=== PATIENT | female | born 1950 | race Caucasian/White ===

== ENCOUNTER 2017-11-27 19:14 | Inpatient (IN) | payer MEDICARE ==
[~2017-11-27] VITALS: Ht 149.9 cm; Wt 86.5 kg
[2017-11-27] MEDS ORDERED: IBUPROFEN 200 MG TABLET ONE (19:38)
[2017-11-27 19:57] LABS: RAPID INFLUENZA A POSITIVE (Negative); RAPID INFLUENZA B Negative (Negative)
[2017-11-27] MEDS ORDERED: IBUPROFEN 200 MG TABLET PO ONE (20:00)
[2017-11-27 20:11] LABS: BASOPHILS # (AUTO) 0.03 x10^3/uL (0-0.1); BASOPHILS % (AUTO) 0 % (0-1); EOSINOPHILS # (AUTO) 0.09 x10^3/uL (0-0.4); EOSINOPHILS % (AUTO) 1 % (1-7); LYMPHOCYTES # (AUTO) 0.96 x10^3/uL (1-3.4); LYMPHOCYTES % (AUTO) 10 % (22-44); MD NO; MEAN CORPUSCULAR HEMOGLOBIN 32.3 pg (27.0-34.8); MEAN CORPUSCULAR HGB CONC 34.4 g/dL (32.4-35.8); MEAN CORPUSCULAR VOLUME 93.9 fL (80-100); MEAN PLATELET VOLUME 8.4 fL (7.4-10.4); MONOCYTES # (AUTO) 1.06 x10^3/uL (0.2-0.8); MONOCYTES % (AUTO) 11 % (2-9); NEUTROPHILS # (AUTO) 7.73 x10^3/uL (1.8-6.8); NEUTROPHILS % (AUTO) 78 % (42-75); PLATELET COUNT 265 x10^3/uL (130-400); RED CELL DISTRIBUTION WIDTH 13.7 % (9.6-15.2)
[2017-11-27 20:22] LABS: ALBUMIN 3.4 g/dL (3.4-5.0); ANION GAP 8 mmol/L (5-15); CALCIUM 8.6 mg/dL (8.5-10.1); CHLORIDE 106 mmol/L (98-107); CREATININE 0.75 mg/dL (0.55-1.02)
[2017-11-27] MEDS ORDERED: CEFTRIAXONE PMX 1GM/50ML 50 ML ONE (20:30)
[2017-11-27] MEDS ORDERED: OSELTAMIVIR 75 MG CAPSULE PO ONE (20:30)
[2017-11-27] MEDS ORDERED: CEFTRIAXONE PMX 1GM/50ML 50 ML IVPB ONE (20:30)
[2017-11-27] MEDS ORDERED: AZITHROMYCIN 500 MG in SODIUM CHLORIDE 0.9% 250 ML IVPB ONE (20:30)
[2017-11-27] MEDS ORDERED: ALBUTEROL/IPRATROPIUM 2.5MG/0.5MG, 3 ML ONE (20:39)
[2017-11-27] MEDS ORDERED: BUPR150T73 PO (21:44)
[2017-11-27] MEDS ORDERED: SODIUM CHLORIDE FLUSH 10ML SYR IVF PRN (22:00)
[2017-11-27] MEDS ORDERED: ONDANSETRON 2MG/ML, 2ML IVPush PRN (22:30)
[2017-11-27] MEDS ORDERED: ALBUTEROL/IPRATROPIUM 2.5MG/0.5MG, 3 ML NPPB PRN (22:30)
[2017-11-27 23:45] VITALS: BP 129/57
[2017-11-28 01:19] VITALS: BP 141/64
[2017-11-28] MEDS: ACETAMINOPHEN 325 MG TABLET PO PRN ×4 (05:58→20:34)
[2017-11-28] MEDS: OSELTAMIVIR 75 MG CAPSULE PO SCH ×2 (09:45→20:34)
[2017-11-28] MEDS ORDERED: DIPHENHYDRAMINE 25 MG CAPSULE PO ONE (12:30)
[2017-11-28] MEDS: methylPREDNISolone SOD SUCC 40 MG/ML IV SCH ×2 (13:48→20:34)
[2017-11-28] MEDS: GUAIFENESIN/DM 200-20MG, 10ML UDC PO PRN ×2 (13:48→20:33)
[2017-11-28] MEDS: ZINC SULFATE 220 MG CAPSULE PO SCH (15:57)
[2017-11-28] MEDS: ASCORBIC ACID 500 MG TABLET PO SCH (15:57)
[2017-11-28 15:59] VITALS: BP 148/65
[2017-11-28] MEDS: BUDESONIDE 0.5 MG/2 ML INHA INH SCH (18:40)
[2017-11-28] MEDS ORDERED: CEFTRIAXONE PMX 2GM/50ML 50 ML IV SCH (20:30)
[2017-11-28] MEDS ORDERED: AZITHROMYCIN 500 MG in SODIUM CHLORIDE 0.9% 250 ML IV SCH (20:30)
[2017-11-28] MEDS ORDERED: MELATONIN 5 MG TABLET PO SCH (21:00)
[2017-11-28 22:09] VITALS: BP 133/49
[2017-11-29 01:54] VITALS: BP 127/69
[2017-11-29] MEDS: methylPREDNISolone SOD SUCC 40 MG/ML IV SCH (05:07)
[2017-11-29 09:00] VITALS: BP 158/68
[2017-11-29] MEDS: ZINC SULFATE 220 MG CAPSULE PO SCH (09:25)
[2017-11-29] MEDS: ASCORBIC ACID 500 MG TABLET PO SCH (09:25)
[2017-11-29] MEDS: GUAIFENESIN/DM 200-20MG, 10ML UDC PO PRN (09:25)
[2017-11-29] MEDS: OSELTAMIVIR 75 MG CAPSULE PO SCH (09:25)
[2017-11-29 09:37] VITALS: BP 149/68
[2017-11-29] MEDS ORDERED: DOXY100T PO (10:21)
[2017-11-29] MEDS ORDERED: PRED20TA PO (10:21)
[2017-11-29] MEDS ORDERED: ACET325T14 PO (10:21)
[2017-11-29] MEDS ORDERED: OSEL75CA PO (10:21)
[2017-11-29] MEDS ORDERED: CEFD300C37 PO (10:21)
[2017-11-29] MEDS ORDERED: GUAI5SYR PO (10:21)
[2017-11-29] MEDS ORDERED: ASCO500T6 PO (10:21)
[2017-11-29] MEDS ORDERED: ALBU8.5H8 INH (10:29)
[2017-11-29] MEDS ORDERED: ZINC220C5 PO (12:24)
[2017-11-29 12:34] VITALS: BP 147/70
[2017-11-29] MEDS: BUDESONIDE 0.5 MG/2 ML INHA INH SCH (12:48)
== END 2017-11-29 13:50 | disposition home or self-care (01) | DRG 871 ==
LOC: ED 21:57 → EDIP 22:34 → 4NOR 23:15
PROVIDERS: ADMIT Internal Medicine; ATTEND Internal Medicine
PROC: 5A09357 Assistance with Respiratory Ventilation, Less than 24 Consecutive Hours, Continuous Positive Airway Pressure (ICD-10-PCS; principal; 2017-11-28)
DX: A41.9 Sepsis, unspecified organism (principal); J10.08 Influenza due to other identified influenza virus with other specified pneumonia; J96.01 Acute respiratory failure with hypoxia; Z99.11 Dependence on respirator [ventilator] status; J15.9 Unspecified bacterial pneumonia; E66.9 Obesity, unspecified; G47.33 Obstructive sleep apnea (adult) (pediatric); I10 Essential (primary) hypertension; Z20.828 Contact with and (suspected) exposure to other viral communicable diseases; Z87.891 Personal history of nicotine dependence; Z68.38 Body mass index [BMI] 38.0-38.9, adult; Z90.710 Acquired absence of both cervix and uterus
CPT/HCPCS: 36415; 71046; 80048; 82040; 83605; 85025; 87040; 87400; 93005; 94640; 94660; 96365; J0456; J0696; J7620; J7626; J2920; J7050; Q0163

== ENCOUNTER 2018-07-23 12:54 | Inpatient (IN) | payer MEDICARE ==
[~2018-07-23] VITALS: Ht 149.9 cm; Wt 79.4 kg
[~2018-07-23 12:54] MED LIST: ACET325T14 PO; ALBU8.5H8 INH; ASCO500T6 PO; BUPR150T73 PO; CEFD300C37 PO; DOXY100T PO; GUAI5SYR PO; OSEL75CA PO; PRED20TA PO; ZINC220C5 PO
[2018-07-23] MEDS ORDERED: ACETAMINOPHEN 500 MG TABLET ONE (13:37)
[2018-07-23] MEDS ORDERED: SODIUM CHLORIDE 0.9% 1,000ML IVBOLUS ONE (14:00)
[2018-07-23] MEDS ORDERED: ACETAMINOPHEN 500 MG TABLET PO ONE (14:00)
[2018-07-23 14:26] LABS: ALBUMIN 3.1 g/dL (3.4-5.0); ANION GAP 10 mmol/L (5-15); CALCIUM 8.9 mg/dL (8.5-10.1); CHLORIDE 101 mmol/L (98-107)
[2018-07-23 14:27] LABS: INTERNATIONAL NORMALIZED RATIO 0.99 (0.93-1.1); PROTHROMBIN TIME 10.2 Seconds (9.6-11.5)
[2018-07-23 14:29] LABS: MEAN CORPUSCULAR HEMOGLOBIN 31.8 pg (27.0-34.8); MEAN CORPUSCULAR HGB CONC 34.3 g/dL (32.4-35.8); MEAN CORPUSCULAR VOLUME 92.5 fL (80-100); MEAN PLATELET VOLUME 8.8 fL (7.4-10.4); PLATELET COUNT 254 x10^3/uL (130-400); RED BLOOD COUNT 4.34 x10^6/uL (3.82-5.3); RED CELL DISTRIBUTION WIDTH 13.4 % (9.6-15.2)
[2018-07-23] MEDS ORDERED: SODIUM CHLORIDE FLUSH 10ML SYR IVF ONE (14:30)
[2018-07-23 14:32] LABS: ALANINE AMINOTRANSFERASE 48 U/L (12-78); ALKALINE PHOSPHATASE 154 U/L (45-117); BILIRUBIN,TOTAL 1.4 mg/dL (0.2-1.0); CREATININE 0.87 mg/dL (0.55-1.02); TOTAL PROTEIN 7.9 g/dL (6.4-8.2)
[2018-07-23 15:15] LABS: MICROSCOPIC INDICATED
[2018-07-23 15:16] LABS: CULTURE INDICATED? YES
[2018-07-23] MEDS ORDERED: CEFTRIAXONE PMX 1GM/50ML 50 ML ONE (15:30)
[2018-07-23] MEDS ORDERED: CEFTRIAXONE 1,000 MG in SODIUM CHLORIDE 0.9% 50 ML IV ONE ×2 (15:30→17:00)
[2018-07-23] MEDS ORDERED: LOSA25TA6 PO (15:49)
[2018-07-23] MEDS ORDERED: ATOR10TA PO (15:49)
[2018-07-23] MEDS ORDERED: DULO30CA2 PO (15:49)
[2018-07-23] MEDS ORDERED: OXYB10TA PO (15:49)
[2018-07-23 15:53] LABS: MD YES
[2018-07-23 16:07] LABS: <RBC MORPHOLOGY> NORMAL; BAND#(MANUAL) 0.66 x10^3/uL; BANDS%(MANUAL) 4 % (0-7); LYMPH#(MANUAL) 2.48 x10^3/uL (1-3.4); LYMPHS% (MANUAL) 15 % (22-44); MONOS#(MANUAL) 2.48 x10^3/uL (0.3-2.7); MONOS% (MANUAL) 15 % (2-9); SEG#(MANUAL) 10.89 x10^3/uL (1.8-6.8); SEGS% (MANUAL) 66 % (42-75)
[2018-07-23 16:08] LABS: <PLATELET ESTIMATE> ADEQUATE; <PLT MORPHOLOGY> NORMAL PLT MORPH; TOXIC GRAN 1+
[2018-07-23] MEDS ORDERED: DOCUSATE 100 MG CAPSULE PO PRN (17:00)
[2018-07-23] MEDS ORDERED: MORPHINE SULFATE 4 MG/ML, 1ML IVPush PRN (17:00)
[2018-07-23] MEDS ORDERED: ZOLPIDEM 5MG TABLET PO PRN ×2 (17:00→21:00)
[2018-07-23] MEDS ORDERED: LABETALOL 5MG/ML, 20ML IVPush PRN (17:00)
[2018-07-23] MEDS ORDERED: ONDANSETRON 2MG/ML, 2ML IVPush PRN (17:00)
[2018-07-23] MEDS ORDERED: hydrALAzine 20 MG/ML, 1ML IVPush PRN (17:00)
[2018-07-23] MEDS ORDERED: POLYETHYLENE GLYCOL 17 GM PACKET PO PRN (17:00)
[2018-07-23] MEDS ORDERED: BISACODYL 10 MG SUPP PR PRN (17:00)
[2018-07-23] MEDS ORDERED: PROMETHAZINE 25 MG/ML, 1ML IM PRN (17:00)
[2018-07-23] MEDS ORDERED: GABAPENTIN 300 MG CAPSULE PO PRN (17:00)
[2018-07-23 17:23] VITALS: BP 117/60
[2018-07-23] MEDS: SODIUM CHLORIDE 0.9% 1,000 ML IV SCH (17:31)
[2018-07-23 17:49] LABS: FREE T4 (FREE THYROXINE) 1.24 ng/dL (0.76-1.46); THYROID STIMULATING HORMONE 0.997 mIU/L (0.358-3.740)
[2018-07-23] MEDS ORDERED: OXYcodone/APAP 5/325MG TABLET PO PRN (18:00)
[2018-07-23 18:26] LABS: HEMOGLOBIN A1C 5.9 % (4.2-6.3)
[2018-07-23] MEDS: ACETAMINOPHEN 325 MG TABLET PO PRN (19:48)
[2018-07-23 20:27] VITALS: BP 151/76
[2018-07-23] MEDS: ENOXAPARIN 40 MG/0.4 ML SQ SCH (21:00)
[2018-07-23] MEDS: ATORVASTATIN 10 MG TABLET PO SCH (21:14)
[2018-07-24] MEDS: ACETAMINOPHEN 325 MG TABLET PO PRN ×4 (00:52→21:29)
[2018-07-24] MEDS: SODIUM CHLORIDE 0.9% 1,000 ML IV SCH ×3 (00:52→19:40)
[2018-07-24] MEDS: ONDANSETRON ODT 4 MG PO PRN (00:52)
[2018-07-24 01:05] VITALS: BP 133/68
[2018-07-24 05:44] LABS: CHLORIDE 107 mmol/L (98-107)
[2018-07-24 05:45] LABS: MEAN CORPUSCULAR HEMOGLOBIN 31.9 pg (27.0-34.8); MEAN CORPUSCULAR HGB CONC 34.4 g/dL (32.4-35.8); MEAN CORPUSCULAR VOLUME 92.8 fL (80-100); MEAN PLATELET VOLUME 8.8 fL (7.4-10.4); PLATELET COUNT 239 x10^3/uL (130-400); RED BLOOD COUNT 3.86 x10^6/uL (3.82-5.3); RED CELL DISTRIBUTION WIDTH 13.4 % (9.6-15.2)
[2018-07-24 05:54] LABS: ALANINE AMINOTRANSFERASE 41 U/L (12-78); ALBUMIN 2.5 g/dL (3.4-5.0); ALKALINE PHOSPHATASE 126 U/L (45-117); ANION GAP 9 mmol/L (5-15); BILIRUBIN,TOTAL 0.8 mg/dL (0.2-1.0); CALCIUM 8.1 mg/dL (8.5-10.1); CHOL/HDL RATIO 2.7; CHOLESTEROL, TOTAL 100 mg/dL (140-239); CREATININE 0.77 mg/dL (0.55-1.02); HDL CHOL % 37 % (28-40); HDL CHOLESTEROL (DIRECT) 37 mg/dL (40-60); LDL CHOLESTEROL,CALCULATED 44 mg/dL (54-169); LDL/HDL RATIO 1.2 (0.5-3.0); TOTAL PROTEIN 6.5 g/dL (6.4-8.2); TRIGLYCERIDES 95 mg/dL (50-200); VLDL CHOLESTEROL 19 mg/dL (0-25)
[2018-07-24 07:15] LABS: BASOPHILS # (AUTO) 0.05 x10^3/uL (0-0.1); BASOPHILS % (AUTO) 0 % (0-1); EOSINOPHILS # (AUTO) 0.01 x10^3/uL (0-0.4); EOSINOPHILS % (AUTO) 0 % (1-7); LYMPHOCYTES # (AUTO) 2.19 x10^3/uL (1-3.4); LYMPHOCYTES % (AUTO) 12 % (22-44); MD SCAN; MONOCYTES # (AUTO) 2.41 x10^3/uL (0.2-0.8); MONOCYTES % (AUTO) 13 % (2-9); NEUTROPHILS # (AUTO) 13.88 x10^3/uL (1.8-6.8); NEUTROPHILS % (AUTO) 75 % (42-75)
[2018-07-24 08:44] VITALS: BP 127/71
[2018-07-24] MEDS: DULOXETINE 30 MG CAPSULE.DR PO SCH (08:51)
[2018-07-24] MEDS: LOSARTAN 25MG TABLET PO SCH (08:52)
[2018-07-24] MEDS ORDERED: POTASSIUM CHLORIDE 40 MEQ in SODIUM CHLORIDE 0.9% 500 ML IV ONE (13:00)
[2018-07-24] MEDS ORDERED: CEFTRIAXONE 2 GM in SODIUM CHLORIDE 0.9% 50 ML IV SCH (14:00)
[2018-07-24 14:56] VITALS: BP 114/68
[2018-07-24 19:14] VITALS: BP 112/63
[2018-07-24] MEDS: ENOXAPARIN 40 MG/0.4 ML SQ SCH (21:00)
[2018-07-24] MEDS: ATORVASTATIN 10 MG TABLET PO SCH (21:29)
[2018-07-25 02:16] VITALS: BP 118/68
[2018-07-25] MEDS: SODIUM CHLORIDE 0.9% 1,000 ML IV SCH ×3 (02:19→18:23)
[2018-07-25 06:14] LABS: MEAN CORPUSCULAR HEMOGLOBIN 32.1 pg (27.0-34.8); MEAN CORPUSCULAR HGB CONC 34.3 g/dL (32.4-35.8); MEAN CORPUSCULAR VOLUME 93.5 fL (80-100); MEAN PLATELET VOLUME 8.9 fL (7.4-10.4); PLATELET COUNT 252 x10^3/uL (130-400); RED BLOOD COUNT 3.89 x10^6/uL (3.82-5.3); RED CELL DISTRIBUTION WIDTH 13.4 % (9.6-15.2)
[2018-07-25 06:19] LABS: CHLORIDE 111 mmol/L (98-107)
[2018-07-25 06:28] LABS: ALANINE AMINOTRANSFERASE 38 U/L (12-78); ALBUMIN 2.5 g/dL (3.4-5.0); ALKALINE PHOSPHATASE 129 U/L (45-117); ANION GAP 8 mmol/L (5-15); BILIRUBIN,TOTAL 0.5 mg/dL (0.2-1.0); CALCIUM 8.6 mg/dL (8.5-10.1); GAMMA GLUTAMYL TRANSPEPTIDASE 74 U/L (5-55); TOTAL PROTEIN 6.6 g/dL (6.4-8.2)
[2018-07-25 06:51] LABS: BASOPHILS # (AUTO) 0.05 x10^3/uL (0-0.1); BASOPHILS % (AUTO) 0 % (0-1); EOSINOPHILS # (AUTO) 0.12 x10^3/uL (0-0.4); EOSINOPHILS % (AUTO) 1 % (1-7); LYMPHOCYTES # (AUTO) 2.97 x10^3/uL (1-3.4); LYMPHOCYTES % (AUTO) 22 % (22-44); MD SCAN; MONOCYTES # (AUTO) 1.68 x10^3/uL (0.2-0.8); MONOCYTES % (AUTO) 12 % (2-9); NEUTROPHILS # (AUTO) 8.73 x10^3/uL (1.8-6.8); NEUTROPHILS % (AUTO) 64 % (42-75)
[2018-07-25 07:24] VITALS: BP 130/71
[2018-07-25] MEDS: ACETAMINOPHEN 325 MG TABLET PO PRN ×2 (09:51→17:06)
[2018-07-25] MEDS: LOSARTAN 25MG TABLET PO SCH (09:51)
[2018-07-25] MEDS: DULOXETINE 30 MG CAPSULE.DR PO SCH (09:51)
[2018-07-25 13:25] VITALS: BP 115/70
[2018-07-25] MEDS: ONDANSETRON ODT 4 MG PO PRN (17:06)
[2018-07-25] MEDS: PIPERACILLIN/TAZO/PMX 3.375GM 50 ML IV SCH ×2 (17:06→22:55)
[2018-07-25 19:24] VITALS: BP 129/71
[2018-07-25] MEDS: ENOXAPARIN 40 MG/0.4 ML SQ SCH (21:00)
[2018-07-25] MEDS: ATORVASTATIN 10 MG TABLET PO SCH (21:33)
[2018-07-26 01:43] VITALS: BP 149/66
[2018-07-26] MEDS: SODIUM CHLORIDE 0.9% 1,000 ML IV SCH ×2 (03:14→17:29)
[2018-07-26] MEDS: PIPERACILLIN/TAZO/PMX 3.375GM 50 ML IV SCH ×4 (04:50→22:56)
[2018-07-26 05:15] LABS: CHLORIDE 109 mmol/L (98-107)
[2018-07-26 05:19] LABS: ALANINE AMINOTRANSFERASE 38 U/L (12-78); ALBUMIN 2.2 g/dL (3.4-5.0); ALKALINE PHOSPHATASE 132 U/L (45-117); ANION GAP 8 mmol/L (5-15); BILIRUBIN,TOTAL 0.4 mg/dL (0.2-1.0); CREATININE 0.63 mg/dL (0.55-1.02); TOTAL PROTEIN 5.9 g/dL (6.4-8.2)
[2018-07-26 06:13] LABS: BASOPHILS # (AUTO) 0.04 x10^3/uL (0-0.1); BASOPHILS % (AUTO) 1 % (0-1); EOSINOPHILS # (AUTO) 0.22 x10^3/uL (0-0.4); EOSINOPHILS % (AUTO) 2 % (1-7); LYMPHOCYTES # (AUTO) 2.16 x10^3/uL (1-3.4); LYMPHOCYTES % (AUTO) 24 % (22-44); MD NO; MEAN CORPUSCULAR HEMOGLOBIN 31.8 pg (27.0-34.8); MEAN CORPUSCULAR HGB CONC 33.9 g/dL (32.4-35.8); MEAN CORPUSCULAR VOLUME 93.9 fL (80-100); MEAN PLATELET VOLUME 8.3 fL (7.4-10.4); MONOCYTES # (AUTO) 0.97 x10^3/uL (0.2-0.8); MONOCYTES % (AUTO) 11 % (2-9); NEUTROPHILS # (AUTO) 5.78 x10^3/uL (1.8-6.8); NEUTROPHILS % (AUTO) 63 % (42-75); PLATELET COUNT 266 x10^3/uL (130-400); RED BLOOD COUNT 3.66 x10^6/uL (3.82-5.3); RED CELL DISTRIBUTION WIDTH 13.9 % (9.6-15.2)
[2018-07-26 07:04] VITALS: BP 153/62
[2018-07-26] MEDS: DULOXETINE 30 MG CAPSULE.DR PO SCH (09:00)
[2018-07-26] MEDS: ACETAMINOPHEN 325 MG TABLET PO PRN ×2 (09:00→17:29)
[2018-07-26] MEDS: LOSARTAN 25MG TABLET PO SCH (09:00)
[2018-07-26 15:42] VITALS: BP 146/77
[2018-07-26] MEDS: ONDANSETRON ODT 4 MG PO PRN (17:29)
[2018-07-26] MEDS: ENOXAPARIN 40 MG/0.4 ML SQ SCH (19:20)
[2018-07-26 19:30] VITALS: BP 114/65
[2018-07-26] MEDS: ATORVASTATIN 10 MG TABLET PO SCH (20:26)
[2018-07-27 02:08] VITALS: BP 153/72
[2018-07-27 05:10] LABS: BASOPHILS # (AUTO) 0.03 x10^3/uL (0-0.1); BASOPHILS % (AUTO) 0 % (0-1); EOSINOPHILS # (AUTO) 0.32 x10^3/uL (0-0.4); EOSINOPHILS % (AUTO) 3 % (1-7); LYMPHOCYTES # (AUTO) 2.65 x10^3/uL (1-3.4); LYMPHOCYTES % (AUTO) 26 % (22-44); MD NO; MEAN CORPUSCULAR HEMOGLOBIN 31.8 pg (27.0-34.8); MEAN CORPUSCULAR VOLUME 93.6 fL (80-100); MEAN PLATELET VOLUME 8.3 fL (7.4-10.4); MONOCYTES # (AUTO) 1.05 x10^3/uL (0.2-0.8); MONOCYTES % (AUTO) 10 % (2-9); NEUTROPHILS # (AUTO) 6.25 x10^3/uL (1.8-6.8); NEUTROPHILS % (AUTO) 61 % (42-75); PLATELET COUNT 327 x10^3/uL (130-400); RED BLOOD COUNT 3.52 x10^6/uL (3.82-5.3); RED CELL DISTRIBUTION WIDTH 13.6 % (9.6-15.2)
[2018-07-27 05:16] LABS: ALBUMIN 2.3 g/dL (3.4-5.0); ANION GAP 8 mmol/L (5-15); CALCIUM 8.3 mg/dL (8.5-10.1); CHLORIDE 105 mmol/L (98-107); CREATININE 0.72 mg/dL (0.55-1.02)
[2018-07-27] MEDS: PIPERACILLIN/TAZO/PMX 3.375GM 50 ML IV SCH (05:30)
[2018-07-27] MEDS: CEFTRIAXONE 2 GM in SODIUM CHLORIDE 0.9% 50 ML IV SCH (07:34)
[2018-07-27] MEDS: SODIUM CHLORIDE 0.9% 1,000 ML IV SCH ×2 (07:36→20:17)
[2018-07-27 07:52] VITALS: BP 147/71
[2018-07-27] MEDS: LOSARTAN 25MG TABLET PO SCH (09:00)
[2018-07-27] MEDS: DULOXETINE 30 MG CAPSULE.DR PO SCH (09:00)
[2018-07-27 13:49] VITALS: BP 136/69
[2018-07-27 19:12] VITALS: BP 157/68
[2018-07-27] MEDS: ENOXAPARIN 40 MG/0.4 ML SQ SCH (19:28)
[2018-07-27] MEDS: ATORVASTATIN 10 MG TABLET PO SCH (20:17)
[2018-07-28] MEDS: ACETAMINOPHEN 325 MG TABLET PO PRN (01:05)
[2018-07-28 01:28] VITALS: BP 158/74
[2018-07-28 05:10] LABS: ALBUMIN 2.3 g/dL (3.4-5.0); ANION GAP 6 mmol/L (5-15); CALCIUM 8.1 mg/dL (8.5-10.1); CHLORIDE 110 mmol/L (98-107)
[2018-07-28 05:11] LABS: CREATININE 0.61 mg/dL (0.55-1.02)
[2018-07-28 06:17] LABS: BASOPHILS # (AUTO) 0.05 x10^3/uL (0-0.1); BASOPHILS % (AUTO) 1 % (0-1); EOSINOPHILS # (AUTO) 0.34 x10^3/uL (0-0.4); EOSINOPHILS % (AUTO) 4 % (1-7); LYMPHOCYTES # (AUTO) 3.16 x10^3/uL (1-3.4); LYMPHOCYTES % (AUTO) 32 % (22-44); MD NO; MEAN CORPUSCULAR HEMOGLOBIN 32.1 pg (27.0-34.8); MEAN CORPUSCULAR HGB CONC 34.6 g/dL (32.4-35.8); MEAN CORPUSCULAR VOLUME 92.7 fL (80-100); MEAN PLATELET VOLUME 7.8 fL (7.4-10.4); MONOCYTES % (AUTO) 10 % (2-9); NEUTROPHILS # (AUTO) 5.23 x10^3/uL (1.8-6.8); NEUTROPHILS % (AUTO) 53 % (42-75); PLATELET COUNT 413 x10^3/uL (130-400); RED CELL DISTRIBUTION WIDTH 13.7 % (9.6-15.2)
[2018-07-28 08:04] VITALS: BP 138/66
[2018-07-28] MEDS: CEFTRIAXONE 2 GM in SODIUM CHLORIDE 0.9% 50 ML IV SCH (08:14)
[2018-07-28] MEDS: LOSARTAN 25MG TABLET PO SCH (08:15)
[2018-07-28] MEDS: DULOXETINE 30 MG CAPSULE.DR PO SCH (08:15)
[2018-07-28 12:23] VITALS: BP 152/76
== END 2018-07-28 14:15 | disposition home or self-care (01) | DRG 872 ==
LOC: ED 15:37 → EDIP 15:38 → ED 16:09 → 3NE 16:44 → DCLOUNGE 07-28 13:55
PROVIDERS: ADMIT Internal Medicine; ATTEND Internal Medicine
PROC: 02HV33Z Insertion of Infusion Device into Superior Vena Cava, Percutaneous Approach (ICD-10-PCS; principal; 2018-07-27)
PROC: B5181ZA Fluoroscopy of Superior Vena Cava using Low Osmolar Contrast, Guidance (ICD-10-PCS; 2018-07-27)
PROC: B548ZZA Ultrasonography of Superior Vena Cava, Guidance (ICD-10-PCS; 2018-07-27)
DX: A41.9 Sepsis, unspecified organism (principal); E44.0 Moderate protein-calorie malnutrition; N12 Tubulo-interstitial nephritis, not specified as acute or chronic; B96.20 Unspecified Escherichia coli [E. coli] as the cause of diseases classified elsewhere; E78.00 Pure hypercholesterolemia, unspecified; F32.9 Major depressive disorder, single episode, unspecified; G47.33 Obstructive sleep apnea (adult) (pediatric); I10 Essential (primary) hypertension; E78.5 Hyperlipidemia, unspecified; N32.81 Overactive bladder; Z90.710 Acquired absence of both cervix and uterus; Z79.899 Other long term (current) drug therapy; Z99.81 Dependence on supplemental oxygen; Z87.891 Personal history of nicotine dependence; Z82.3 Family history of stroke; Z68.35 Body mass index [BMI] 35.0-35.9, adult
CPT/HCPCS: 36415; 36569; 71045; 74176; 76937; 77001; 80048; 80053; 80061; 81001; 82040; 82977; 83036; 83605; 83735; 84145; 84439; 84443; 85025; 85610; 85730; 87040; 87077; 87086; 87186; 93005; 96361; 96365; 99291; G0378; J0696; J2543; J3480; Q0162; C1751; J7030; J7040

== ENCOUNTER → 2018-08-06 | Outpatient (CLI) | payer MEDICARE ==
[~2018-08-06] MED LIST changes: +ATOR10TA PO; +DULO30CA2 PO; +LOSA25TA6 PO; +OXYB10TA PO
== END | disposition home or self-care (01) ==
LOC: RAD 13:30
PROVIDERS: ATTEND Family Medicine
DX: J43.9 Emphysema, unspecified (principal); Z87.891 Personal history of nicotine dependence

== ENCOUNTER → 2018-12-09 | Outpatient (CLI) | payer MEDICARE ==
[~2018-12-09] MED LIST changes: +LOSA25TA25 PO; -LOSA25TA6 PO
== END | disposition home or self-care (01) ==
LOC: CFH 08:40
PROVIDERS: ATTEND Nurse Practitioner
DX: Z12.31 Encounter for screening mammogram for malignant neoplasm of breast (principal); Z12.2 Encounter for screening for malignant neoplasm of respiratory organs; I25.10 Atherosclerotic heart disease of native coronary artery without angina pectoris; R91.8 Other nonspecific abnormal finding of lung field; Z87.891 Personal history of nicotine dependence
CPT/HCPCS: 77067; G0297

== ENCOUNTER → 2020-07-05 | Outpatient (CLI) | payer MEDICARE ==
[~2020-07-05] MED LIST changes: -ASCO500T6 PO; +ASCO500T9 PO; -OSEL75CA PO; +OSEL75CA26 PO; -OXYB10TA PO; +OXYB10TA26 PO; -ZINC220C5 PO; +ZINC220C7 PO
== END | disposition home or self-care (01) ==
LOC: CFH 13:08
PROVIDERS: ATTEND Family Medicine
DX: N28.1 Cyst of kidney, acquired (principal); M50.322 Other cervical disc degeneration at C5-C6 level; J32.0 Chronic maxillary sinusitis; K09.0 Developmental odontogenic cysts; R31.9 Hematuria, unspecified; T78.40XA Allergy, unspecified, initial encounter
CPT/HCPCS: 70486; 76770

== ENCOUNTER → 2020-08-28 | Outpatient (CLI) | payer MEDICARE | END | disposition home or self-care (01) | LOC: CFH 09:31 | PROVIDERS: ATTEND Family Medicine | DX: M81.0 Age-related osteoporosis without current pathological fracture (principal); N95.8 Other specified menopausal and perimenopausal disorders | CPT/HCPCS: 77080 ==

== ENCOUNTER 2020-11-22 08:19 | Emergency (ER) | payer MEDICARE ==
[~2020-11-22] VITALS: Ht 149.9 cm; Wt 75.2 kg
[2020-11-22] MEDS ORDERED: FLUORESCEIN OPHTHALMIC 1 MG STRIP EACHEYE ONE (08:30)
[2020-11-22] MEDS ORDERED: PROPARACAINE OPHTH 0.5%, 15ML EACHEYE ONE (08:30)
[2020-11-22] MEDS ORDERED: FLUORESCEIN OPHTHALMIC 1 MG STRIP ONE (08:31)
[2020-11-22] MEDS ORDERED: PROPARACAINE OPHTH 0.5%, 15ML ONE (08:31)
--- NOTE | 2020-11-22 08:45 | NUR ---
assumed care of pt. pt here for redness and pain to both eyes, significantly worse to L eye x1 week. pt reports that she has been seen previosly by provider and was given a Rx for gtts, but hs had no relief of sx. +drainage from L eye no loss or change of vision [facility] at bedside for eval
[2020-11-22 09:55] VITALS: BP 141/73
== END 2020-11-22 09:58 | disposition home or self-care (01) ==
LOC: ED 09:24
DX: S05.02XA Injury of conjunctiva and corneal abrasion without foreign body, left eye, initial encounter (principal); H10.023 Other mucopurulent conjunctivitis, bilateral; I10 Essential (primary) hypertension; E78.00 Pure hypercholesterolemia, unspecified; Z90.49 Acquired absence of other specified parts of digestive tract; Z90.710 Acquired absence of both cervix and uterus; X58.XXXA Exposure to other specified factors, initial encounter; Y93.89 Activity, other specified; Y92.89 Other specified places as the place of occurrence of the external cause; Y99.8 Other external cause status
CPT/HCPCS: 99283